=== PATIENT | male | born 1975 | race Caucasian/White ===

== ENCOUNTER 2018-03-09 07:09 | Observation (INO) | payer BC ==
[~2018-03-09 07:09] MED LIST: LIDOCAINE 1% PF 2 ML VIAL. ID; ONDANSETRON PF 4 MG/2 ML VIAL. IV; fentaNYL PF VIAL 100 MCG/2 ML VIAL IV
[2018-03-09] MEDS ORDERED: PHENYLEPHRINE 10 MG/ML VIAL. (07:32)
[2018-03-09] MEDS ORDERED: PROPOFOL 50 ML IV ×2 (07:32→09:17)
[2018-03-09] MEDS ORDERED: LIDOCAINE 2% PF Vial for OR 5 ML VIAL. ×2 (07:32→10:23)
[2018-03-09] MEDS ORDERED: ONDANSETRON PF 4 MG/2 ML VIAL. (07:32)
[2018-03-09] MEDS ORDERED: DEXAMETHASONE SOD PHOS 20 MG/5 ML VIAL. (07:32)
[2018-03-09] MEDS ORDERED: REMIFENTANIL 2 MG VIAL. IV (07:32)
[2018-03-09] MEDS ORDERED: MIDAZOLAM HCL/PF 2 MG/2 ML VIAL. (07:32)
[2018-03-09] MEDS ORDERED: PROPOFOL 20 ML IV (07:32)
[2018-03-09] MEDS ORDERED: ROCURONIUM 50 MG/5 ML VIAL. (07:32)
[2018-03-09] MEDS ORDERED: DESFLURANE > 120 MINUTES IH (07:34)
[2018-03-09] MEDS: IV RINGERS,LACTATED 1000ML 1,000 ML IV (07:56)
[2018-03-09] MEDS ORDERED: SUCCINYLCHOLINE 200 MG/10 ML VIAL. (08:39)
[2018-03-09] MEDS ORDERED: GLYCOPYRROLATE 1 MG/5 ML VIAL. (09:11)
[2018-03-09] MEDS: GELATIN SPONGE SIZE 100. (09:31)
[2018-03-09] MEDS: BACITRACIN 50,000 UNIT in IV NORMAL SALINE 1000ML BAG 1,000 ML IRR (09:31)
[2018-03-09] MEDS: THROMBIN TOPICAL 20,000 UNIT SPRAY.SYRN KIT TP (09:31)
[2018-03-09] MEDS: BUPIVAC MPF-EPI 0.5%-1:200000 30 ML VIAL. INJ (09:31)
[2018-03-09] MEDS ORDERED: DESFLURANE 61 TO 120 MINUTES IH (10:27)
[2018-03-09] MEDS ORDERED: fentaNYL PF VIAL 100 MCG/2 ML VIAL ×2 (10:57→11:21)
[2018-03-09] MEDS ORDERED: CALCIUM CARBONATE 500 MG TAB.CHEW PO (11:00)
[2018-03-09] MEDS ORDERED: ONDANSETRON PF 4 MG/2 ML VIAL. IV (11:00)
[2018-03-09] MEDS ORDERED: diphenhydrAMINE 50 MG/ML VIAL IV (11:00)
[2018-03-09] MEDS ORDERED: ZOLPIDEM 5 MG TABLET. PO (11:00)
[2018-03-09] MEDS: fentaNYL PF VIAL 100 MCG/2 ML VIAL IV ×5 (11:00→12:21)
[2018-03-09] MEDS ORDERED: 0.9 % SODIUM CHLORIDE 10 ML DISP.SYRIN. IV (11:00)
[2018-03-09] MEDS ORDERED: diphenhydrAMINE HCL 25 MG CAPSULE PO (11:00)
[2018-03-09] MEDS ORDERED: ACETAMINOPHEN 325 MG TABLET. PO (11:00)
[2018-03-09] MEDS ORDERED: MAG HYDROX/ALUMINUM HYD/SIMETH 30 ML ORAL.SUSP PO (11:00)
[2018-03-09] MEDS ORDERED: MAGNESIUM HYDROXIDE 2,400 MG/30 ML ORAL.SUSP. PO (11:00)
[2018-03-09] MEDS ORDERED: busPIRone 10 MG TABLET. PO (11:00)
[2018-03-09] MEDS ORDERED: fentaNYL PF VIAL 100 MCG/2 ML VIAL IV (11:00)
[2018-03-09] MEDS: MORPHINE SULFATE 4 MG/ML DISP.SYRIN. IV ×4 (11:13→11:56)
[2018-03-09] MEDS ORDERED: PROCHLORPERAZINE 10 MG/2 ML VIAL. (11:22)
[2018-03-09] MEDS: PROCHLORPERAZINE 10 MG/2 ML VIAL. IV (11:45)
[2018-03-09] MEDS ORDERED: ceFAZolin 2GM PREMIX 2 GM/50 ML BAG IV (12:00)
[2018-03-09] MEDS: fentaNYL 25MCG/HR PATCH 1 PATCH PATCH.TD72 TD (12:21)
[2018-03-09] MEDS ORDERED: ceFAZolin SODIUM 1 GM in IV DEXTROSE 5% 50 ML IV (14:00)
[2018-03-09] MEDS: POTASSIUM CL 20MEQ D5-0.45NACL 1,000 ML IV ×2 (14:02→19:20)
[2018-03-09] MEDS: ceFAZolin SODIUM IV Push 1 GM VIAL. IVP ×2 (14:03→23:07)
[2018-03-09] MEDS: DOCUSATE SODIUM 100 MG CAPSULE. PO (20:34)
[2018-03-09] MEDS: tiZANidine 4 MG TABLET. PO (21:40)
[2018-03-09] MEDS: oxyCODONE/APAP 10/325 1 TAB TABLET PO (23:07)
[2018-03-10] MEDS: ceFAZolin SODIUM IV Push 1 GM VIAL. IVP (06:35)
[2018-03-10] MEDS: DOCUSATE SODIUM 100 MG CAPSULE. PO (09:14)
[2018-03-10] MEDS: oxyCODONE/APAP 10/325 1 TAB TABLET PO ×2 (09:14→11:34)
== END 2018-03-10 11:44 | disposition home or self-care (01) ==
LOC: SURG 07:09 → 4 SOUTHEST 11:10
DX: M48.02 Spinal stenosis, cervical region (principal); M50.122 Cervical disc disorder at C5-C6 level with radiculopathy
CPT/HCPCS: 63075; 76000; 96374; 96375; 96376; 97162-GP; 97530-GP; A7015; C1713; G0378; G0379; G8978-CI-GP; G8979-CI-GP; G8980-CI-GP; J0330; J0690; J0780; J1100; J2250; J2270; J2405; J2704; J3010; J3490; J7030